=== PATIENT | female | born 2000 | race Caucasian/White ===

== ENCOUNTER 2021-07-03 19:11 | Inpatient (IN) | payer BC ==
[2021-07-03] MEDS ORDERED: Sodium Chloride 0.9% 10 ML Syringe FLUSH PRN (19:27)
[2021-07-03] MEDS ORDERED: Ampicillin 2 GM in Sodium Chloride 0.9% 100 ML IV ONE (19:27)
[2021-07-03] MEDS ORDERED: Misoprostol 25 MCG (1/4 of 100 MCG) Tab VAG ONE (19:27)
[2021-07-03] MEDS ORDERED: Ondansetron 4 MG/2 ML SDV IVPUSH PRN (19:27)
[2021-07-03] MEDS ORDERED: Oxytocin/Lactated Ringers 10 UNIT/1,000 ML BAG IV SCH (19:30)
[2021-07-03] MEDS: Lactated Ringers 1,000 ML IV SCH (20:00)
[2021-07-03] MEDS ORDERED: Misoprostol 100 MCG Tab VAG PRN (21:10)
[2021-07-03] MEDS: Ampicillin 1 GM in Sodium Chloride 0.9% 100 ML IV SCH (23:38)
[2021-07-04] MEDS: Nalbuphine 10 MG/1 ML Vial IVPUSH PRN ×2 (02:21→04:25)
[2021-07-04] MEDS: Ampicillin 1 GM in Sodium Chloride 0.9% 100 ML IV SCH ×2 (03:33→07:20)
[2021-07-04] MEDS: Lactated Ringers 1,000 ML IV SCH (05:04)
[2021-07-04] MEDS ORDERED: Lidocaine 1% 50 ML MDV ONE (07:56)
[2021-07-04] MEDS ORDERED: Misoprostol 200 MCG Tab RECTAL ONE (08:24)
[2021-07-04] MEDS ORDERED: Measles, Mumps & Rubella Vaccine 0.5 ML SDV SUBCUT ONE (10:02)
[2021-07-04] MEDS ORDERED: Benzocaine/Menthol 20%-0.5% Spray 78 GM Cannister TOP PRN (10:02)
[2021-07-04] MEDS ORDERED: Docusate Sodium 100 MG Cap PO PRN (10:02)
[2021-07-04] MEDS ORDERED: Oxytocin/Lactated Ringers 10 UNIT/1,000 ML BAG IV SCH (10:02)
[2021-07-04] MEDS ORDERED: Hydrocortisone Acetate 25 MG Supp RECTAL PRN (10:02)
[2021-07-04] MEDS ORDERED: Magnesium Hydroxide 400 MG/5 ML Susp 30 ML Cup PO PRN (10:02)
[2021-07-04] MEDS: Witch Hazel Medicated Pads 40/Jar TOP PRN (10:45)
[2021-07-04] MEDS: Ibuprofen 600 MG Tab PO PRN ×2 (10:46→16:28)
[2021-07-04] MEDS: Sodium Chloride 0.9% 10 ML Syringe FLUSH SCH (17:06)
[2021-07-04] MEDS: Acetaminophen 325 MG Tab PO PRN (20:16)
[2021-07-05] MEDS: Sodium Chloride 0.9% 250 ML IV SCH ×2 (08:14→11:07)
[2021-07-05] MEDS: Prenatal Multivitamin with Calcium/Folic Acid/Iron Tab PO SCH ×2 (08:15→10:28)
[2021-07-05] MEDS: Ibuprofen 600 MG Tab PO PRN ×2 (09:50→19:20)
[2021-07-05] MEDS: Acetaminophen 325 MG Tab PO PRN (22:35)
[2021-07-05] MEDS: Witch Hazel Medicated Pads 40/Jar TOP PRN (22:35)
[2021-07-06] MEDS: Ibuprofen 600 MG Tab PO PRN (03:36)
[2021-07-06] MEDS: Prenatal Multivitamin with Calcium/Folic Acid/Iron Tab PO SCH (16:14)
== END 2021-07-06 13:49 | disposition home or self-care (01) | DRG 560 ==
LOC: INTOOBSV 19:11 → UNDOADMOB 19:11 → OBSVTOIN 19:11 → JD.OB 19:11 → OBSVTOIN 07-04 09:32 → JD.OB 07-04 09:32 → UNDODISIN 07-06 13:49
PROVIDERS: ADMIT Obstetrics & Gynecology; ATTEND Obstetrics & Gynecology
PROC: 10E0XZZ Delivery of Products of Conception, External Approach (ICD-10-PCS; principal; 2021-07-03)
PROC: 0KQM0ZZ Repair Perineum Muscle, Open Approach (ICD-10-PCS; 2021-07-03)
PROC: 3E0P7VZ Introduction of Hormone into Female Reproductive, Via Natural or Artificial Opening (ICD-10-PCS; 2021-07-03)
PROC: 30233N1 Transfusion of Nonautologous Red Blood Cells into Peripheral Vein, Percutaneous Approach (ICD-10-PCS; 2021-07-05)
DX: O30.033 Twin pregnancy, monochorionic/diamniotic, third trimester (principal); Z37.0 Single live birth; O72.1 Other immediate postpartum hemorrhage; O99.02 Anemia complicating childbirth; D62 Acute posthemorrhagic anemia; Z20.822 Contact with and (suspected) exposure to COVID-19; O99.334 Smoking (tobacco) complicating childbirth; F17.290 Nicotine dependence, other tobacco product, uncomplicated; O70.1 Second degree perineal laceration during delivery; Z3A.39 39 weeks gestation of pregnancy
CPT/HCPCS: 36415; 36430; 51701; 59025; 59409; 85025; 86592; 86850; 86900; 86901; 86922; A9270-GY; C1726; J0290; J2001; J2300; J2590; J7050; J7120; P9016; U0002

== ENCOUNTER 2022-03-18 01:34 | Emergency (ER) | payer BC, OTHER ==
[2022-03-18] MEDS ORDERED: Dextrose 5%-0.9% NaCl 1,000 ML IV SCH (02:30)
[2022-03-18] MEDS ORDERED: Metoclopramide 10 MG/2 ML SDV IVPUSH ONE (02:40)
[2022-03-18] MEDS ORDERED: HYDROmorphone 0.5 MG/0.5 ML Syringe IVPUSH ONE (02:40)
[2022-03-18 03:08] LABS: ESTIMATED GFR 106 mL/min (>60)
[2022-03-18] MEDS ORDERED: Dicyclomine 10 MG Cap PO ONE (05:17)
[2022-03-18] MEDS ORDERED: Polyethylene Glycol 3350 Powder 17 GM Packet PO ONE (05:17)
== END 2022-03-18 05:55 | disposition home or self-care (01) ==
LOC: JD.ED 01:34
DX: K59.01 Slow transit constipation (principal); F17.210 Nicotine dependence, cigarettes, uncomplicated
CPT/HCPCS: 36415; 74018; 80053; 81001; 83690; 84703; 85025; 86140; 96361; 96374; 96375; 99284; A9270; J1170; J2765; J7042

== ENCOUNTER 2022-08-01 22:29 | Emergency (ER) | payer OTHER ==
[2022-08-02] MEDS ORDERED: Ibuprofen 400 MG Tab PO ONE (00:54)
[2022-08-02] MEDS ORDERED: Orphenadrine 100 MG Tab.ER PO STA (00:54)
== END 2022-08-02 01:17 | disposition home or self-care (01) ==
LOC: JD.ED 22:29
DX: S30.0XXA Contusion of lower back and pelvis, initial encounter (principal); F17.290 Nicotine dependence, other tobacco product, uncomplicated; Z86.16 Personal history of COVID-19; W18.30XA Fall on same level, unspecified, initial encounter; Y92.009 Unspecified place in unspecified non-institutional (private) residence as the place of occurrence of the external cause
CPT/HCPCS: 72110; 99283; A9270

== ENCOUNTER 2023-10-01 10:47 | Day surgery (SDC) | payer OTHER ==
[~2023-10-01 10:47] MED LIST: Sodium Chloride 0.9% 10 ML Syringe FLUSH PRN; Sodium Chloride 0.9% 10 ML Syringe FLUSH SCH
[2023-10-01] MEDS: Lactated Ringers 1,000 ML IV SCH (11:37)
[2023-10-01] MEDS ORDERED: fentaNYL 100 MCG/2 ML SDV ONE (12:14)
[2023-10-01] MEDS ORDERED: Lidocaine 1% 5 ML VIAL ONE (12:14)
[2023-10-01] MEDS ORDERED: Dexamethasone 4 MG/ML 5 ML MDV ONE (12:14)
[2023-10-01] MEDS ORDERED: Ondansetron 4 MG/2 ML SDV ONE (12:14)
[2023-10-01] MEDS ORDERED: Propofol 200 MG/20 ML SDV ONE (12:14)
[2023-10-01] MEDS ORDERED: Ketorolac 30 MG/ML SDV ONE (12:44)
[2023-10-01] MEDS ORDERED: Sugammadex Sodium 200 MG/2 ML VIAL IV ONE (13:36)
[2023-10-01] MEDS: EPINEPHrine 1 MG/ML SDV ONE (13:39)
[2023-10-01] MEDS: Bupivacaine 0.5% 30 ML SDV ONE (13:39)
[2023-10-01] MEDS ORDERED: HYDROmorphone 0.5 MG/0.5 ML Syringe IVPUSH PRN (14:18)
[2023-10-01] MEDS: fentaNYL 100 MCG/2 ML SDV IVPUSH PRN (14:26)
== END 2023-10-01 15:20 | disposition home or self-care (01) ==
LOC: JD.SDS 10:47
PROVIDERS: ATTEND Surgery
DX: K42.9 Umbilical hernia without obstruction or gangrene (principal)
CPT/HCPCS: 49591; 81025; J0171; J0665; J1100; J1885; J2405; J2704; J3010; J3490; J7120